=== PATIENT | male | born 1945 | race African-American/Black ===

== ENCOUNTER → 2016-09-02 | Outpatient (CLI) | payer MEDICARE ==
[~2016-09-02] MED LIST: ALEVE 220MG220 MG; ALEVE220 MG PO; FLEXERIL10 MG PO; GLUCOPHAGE500 MG/TAB PO; HCTZ; HCTZ 25MG TAB25 MG PO; KADIAN10 MG PO; LEVAQUIN 5500 MG/TA1 PO; LOPRESSOR 550 MG/TAB PO; LORTAB 5/500 501 TAB PO; LORTAB 7.5/5001 TAB PO; MEDROL 4MG DOSPA4 MG PO; NAPROSYN PO; NEURONTIN300 MG/CAP PO; NORCO 325 MG-101 TAB PO; NORCO 325 MG-51 TAB PO; NORVASC 10MG10 MG PO; PERCOCET 325 MG1 TA2 PO; PLAVIX 75MG TAB75 MG PO; PREVACID30 MG PO; PRILOSEC 20MG20 MG PO; PROTONIX 40MG T40 MG PO; SINGULAIR 110 MG/TAB PO; ULTRAM 50MG TAB50 MG PO; VALIUM 5MG T5 MG/TAB PO; ZANTAC 150MG T150 MG PO; ZITHROMAX 250M250 MG PO; [UNRECOGNIZED DRUG - REMARK]; muscle relaxer
== END ==
LOC: EDBD 15:01 → COL.RAD 15:01
DX: C16.9 Malignant neoplasm of stomach, unspecified (principal)
CPT/HCPCS: Q9967

== ENCOUNTER 2016-10-02 05:21 | Day surgery (SDC) | payer MEDICARE ==
[2016-10-02] VITALS (7 sets, daily range): BP systolic 134–146; BP diastolic 67–79; PULSE 56–73; TEMP 97.7–97.9
[~2016-10-02] VITALS: Ht 172.7 cm; Wt 83.1 kg
== END 2016-10-02 10:50 | disposition home or self-care (01) ==
LOC: EDBD 05:21 → SDCO 05:21
DX: C16.3 Malignant neoplasm of pyloric antrum (principal); K66.0 Peritoneal adhesions (postprocedural) (postinfection); I10 Essential (primary) hypertension; E11.9 Type 2 diabetes mellitus without complications; K21.9 Gastro-esophageal reflux disease without esophagitis; Z79.84 Long term (current) use of oral hypoglycemic drugs; Z95.828 Presence of other vascular implants and grafts; Z90.49 Acquired absence of other specified parts of digestive tract; Z82.49 Family history of ischemic heart disease and other diseases of the circulatory system; Z83.3 Family history of diabetes mellitus; Z80.49 Family history of malignant neoplasm of other genital organs
CPT/HCPCS: C1788; J0360; J0690; J1100; J1644; J2270; J2405; J2704; J2710; J3010; J7030

== ENCOUNTER 2016-12-23 14:31 | Inpatient (IN) | payer MEDICARE ==
[~2016-12-23] VITALS: Ht 175.3 cm; Wt 82.0 kg
[2017-01-05] VITALS (11 sets, daily range): BP systolic 99–146; BP diastolic 61–98; PULSE 56–69; TEMP 97.1–98.4
[2017-01-05] MEDS ORDERED: SINGULAIR 110 MG/TAB PO (06:35)
[2017-01-06] VITALS: BP 115/68; PULSE 67; TEMP 98.2
[2017-01-06 04:00] VITALS: BP 115/68; PULSE 67; TEMP 98.2
[2017-01-06 09:53] VITALS: BP 153/76; PULSE 85; TEMP 97.9
[2017-01-06 11:18] LABS: MEAN CELL VOLUME 91 fl (80.0-100.0); MEAN CORPUSCULAR HGB CONC 32 g/dl (33.0-37.0); MEAN PLATELET VOLUME 11.6 fl (7.4-10.4); PLATELET COUNT 181 K/mm3 (130-400); RED BLOOD COUNT 3.47 M/mm3 (4.20-5.60); REDCELL DISTRIBUTION WIDTH-CV 19.1 % (11.5-14.5); WHITE BLOOD COUNT 16.7 K/mm3 (4.8-10.8)
[2017-01-06 11:25] LABS: CALCIUM 9.1 mg/dL (8.4-10.2); CREATININE, serum 1.21 mg/dL (0.66-1.25); HEMATOCRIT 31.4 % (42.0-52.0); HEMOGLOBIN 10.1 g/dl (13.5-18.0); MEAN CORPUSCULAR HEMOGLOBIN 29 pg (27.0-31.0); POTASSIUM 4.9 mmol/L (3.4-5.0)
[2017-01-06 11:26] LABS: ADD PATHOLOGY DIFF REVIEW NO
[2017-01-06 12:39] LABS: BAND 4 % (0-10); METAMYELOCYTE 1 % (0-0); NEUTROPHILS 77 % (42.0-75.2); PLATELET ESTIMATE NORMAL (NORMAL); TOTAL CELLS COUNTED 100
[2017-01-06 13:34] VITALS: BP 144/83; PULSE 83; TEMP 98.1
[2017-01-06 17:44] VITALS: BP 150/79; PULSE 89; TEMP 98.2
[2017-01-06 21:19] VITALS: BP 136/59; PULSE 95; TEMP 98.2
[2017-01-07 02:05] VITALS: BP 118/46; PULSE 83; TEMP 98.6
[2017-01-07 06:13] LABS: MEAN CELL VOLUME 89 fl (80.0-100.0); MEAN CORPUSCULAR HGB CONC 33 g/dl (33.0-37.0); MEAN PLATELET VOLUME 10.6 fl (7.4-10.4); PLATELET COUNT 139 K/mm3 (130-400); RED BLOOD COUNT 2.87 M/mm3 (4.20-5.60); REDCELL DISTRIBUTION WIDTH-CV 18.9 % (11.5-14.5); WHITE BLOOD COUNT 11.8 K/mm3 (4.8-10.8)
[2017-01-07 06:14] LABS: HEMATOCRIT 25.6 % (42.0-52.0); HEMOGLOBIN 8.4 g/dl (13.5-18.0); MEAN CORPUSCULAR HEMOGLOBIN 29 pg (27.0-31.0)
[2017-01-07 06:15] LABS: ADD PATHOLOGY DIFF REVIEW NO
[2017-01-07 06:19] VITALS: BP 120/66; PULSE 77; TEMP 98.2
[2017-01-07 06:27] LABS: CALCIUM 8.5 mg/dL (8.4-10.2); CREATININE, serum 0.94 mg/dL (0.66-1.25); POTASSIUM 4.2 mmol/L (3.4-5.0)
[2017-01-07 06:57] LABS: BAND 1 % (0-10); NEUTROPHILS 71 % (42.0-75.2); TOTAL CELLS COUNTED 100
[2017-01-07 06:59] LABS: ANISOCYTOSIS 2+
[2017-01-07 07:00] LABS: TARGET CELLS 1+
[2017-01-07 07:01] LABS: SPHEROCYTE 2+
[2017-01-07 07:03] LABS: PLATELET ESTIMATE DECREASED (NORMAL)
[2017-01-07 17:19] VITALS: BP 121/65; PULSE 74; TEMP 98.4
[2017-01-07 21:23] VITALS: BP 121/60; PULSE 74; TEMP 100
[2017-01-08 04:24] VITALS: BP 120/64; PULSE 75; TEMP 98.5
[2017-01-08 04:44] LABS: HEMATOCRIT 23.5 % (42.0-52.0); HEMOGLOBIN 7.6 g/dl (13.5-18.0)
[2017-01-08 08:52] VITALS: BP 133/67; PULSE 74; TEMP 98.6
[2017-01-08 13:23] VITALS: BP 135/71; PULSE 70; TEMP 98.3
[2017-01-08 17:14] VITALS: BP 137/70; PULSE 76; TEMP 99
[2017-01-08 21:27] VITALS: BP 133/71; PULSE 71; TEMP 99.3
[2017-01-09] VITALS: BP 124/65; PULSE 69; TEMP 97.9
[2017-01-09 04:00] VITALS: BP 124/65; PULSE 64; TEMP 98.3
[2017-01-09 05:20] LABS: HEMATOCRIT 24.9 % (42.0-52.0); HEMOGLOBIN 8.1 g/dl (13.5-18.0)
[2017-01-09 08:00] VITALS: BP 108/52; PULSE 63; TEMP 98.4
[2017-01-09 13:46] VITALS: BP 122/60; PULSE 65; TEMP 97.7
[2017-01-09 17:14] VITALS: BP 123/67; PULSE 70; TEMP 98.5
[2017-01-09 21:29] VITALS: BP 126/64; PULSE 76; TEMP 98.8
[2017-01-10 02:31] VITALS: BP 133/66; PULSE 71; TEMP 98.1
[2017-01-10 06:42] VITALS: BP 124/55; PULSE 67; TEMP 98.4
[2017-01-10 09:22] VITALS: BP 130/60; PULSE 72; TEMP 97.7
[2017-01-10 13:46] VITALS: BP 139/73; PULSE 72; TEMP 98.8
[2017-01-10 18:17] VITALS: BP 142/63; PULSE 73; TEMP 98.4
[2017-01-10 21:24] VITALS: BP 140/67; PULSE 76; TEMP 99.3
[2017-01-11 06:03] VITALS: BP 143/64; PULSE 74; TEMP 98.9
[2017-01-11 10:03] VITALS: BP 132/61; PULSE 68; TEMP 97.8
[2017-01-11] MEDS ORDERED: NORCO 325 MG-101 TAB PO (12:04)
== END 2017-01-11 14:45 | disposition home or self-care (01) | DRG 327 ==
LOC: INPTSU 01-05 05:31 → SURG 01-05 05:31 → EDBD 01-05 07:30 → SURG 01-05 10:47
PROVIDERS: Surgery
PROC: 0DB70ZZ Excision of Stomach, Pylorus, Open Approach (ICD-10-PCS; principal; 2017-01-05 07:30)
PROC: 0D160ZA Bypass Stomach to Jejunum, Open Approach (ICD-10-PCS; 2017-01-05 07:30)
DX: C16.3 Malignant neoplasm of pyloric antrum (principal); K91.3 Postprocedural intestinal obstruction; E11.9 Type 2 diabetes mellitus without complications; I70.201 Unspecified atherosclerosis of native arteries of extremities, right leg; Z79.02 Long term (current) use of antithrombotics/antiplatelets; I10 Essential (primary) hypertension
CPT/HCPCS: A4315; A9284; J0690; J0694; J1100; J1650; J1815; J2250; J2405; J2704; J2765; J2795; J3010; J7030; J7120

== ENCOUNTER 2017-12-27 08:18 | Outpatient (CLI) | payer MEDICARE ==
[~2017-12-27] VITALS: Ht 175.3 cm; Wt 79.8 kg
[2017-12-27] VITALS (7 sets, daily range): BP systolic 117–152; BP diastolic 52–96; PULSE 57–63; TEMP 97.3
[~2017-12-27 08:18] MED LIST changes: +ASPIRIN E.C. 8181 MG PO; +B-121000 MCG PO; +FLOMAX 0.40.4 MG/CAP PO; +MEVACOR 20M20 MG/TAB PO
== END 2017-12-27 12:14 | disposition home or self-care (01) ==
LOC: COL.RAD 08:18
DX: M99.71 Connective tissue and disc stenosis of intervertebral foramina of cervical region (principal); M50.11 Cervical disc disorder with radiculopathy, high cervical region; M48.02 Spinal stenosis, cervical region; G60.9 Hereditary and idiopathic neuropathy, unspecified; Z98.890 Other specified postprocedural states
CPT/HCPCS: Q9967

== ENCOUNTER → 2017-12-31 | Outpatient (CLI) | payer MEDICARE | LOC: COL.RAD 12:44 | DX: M87.852 Other osteonecrosis, left femur (principal); M87.851 Other osteonecrosis, right femur ==

== ENCOUNTER 2018-02-04 07:59 | Day surgery (SDC) | payer MEDICARE ==
[~2018-02-04] VITALS: Ht 172.7 cm; Wt 79.2 kg
[2018-02-04 08:41] VITALS: BP 126/65; PULSE 51; TEMP 97.1
[2018-02-04] MEDS ORDERED: B-12 250 MCG PO (09:02)
[2018-02-04] MEDS ORDERED: LEVITRA20 MG PO (09:09)
[2018-02-04] MEDS ORDERED: PROAIR HFA0.09 MG/AC IH (09:11)
[2018-02-04 10:35] VITALS: BP 112/62; PULSE 52; TEMP 97.6
[2018-02-04 10:50] VITALS: BP 112/78; PULSE 47
[2018-02-04 11:05] VITALS: BP 120/75; PULSE 47
== END 2018-02-04 11:35 ==
LOC: SDCO 07:59
DX: Z12.11 Encounter for screening for malignant neoplasm of colon (principal); D12.0 Benign neoplasm of cecum; D12.2 Benign neoplasm of ascending colon; K57.30 Diverticulosis of large intestine without perforation or abscess without bleeding; K64.1 Second degree hemorrhoids; K64.4 Residual hemorrhoidal skin tags; D13.1 Benign neoplasm of stomach; E75.5 Other lipid storage disorders; K22.2 Esophageal obstruction; K31.89 Other diseases of stomach and duodenum; R13.10 Dysphagia, unspecified; I10 Essential (primary) hypertension; E11.9 Type 2 diabetes mellitus without complications; Z88.8 Allergy status to other drugs, medicaments and biological substances; Z79.84 Long term (current) use of oral hypoglycemic drugs; Z90.49 Acquired absence of other specified parts of digestive tract; Z85.028 Personal history of other malignant neoplasm of stomach
CPT/HCPCS: C1726; J2250; J3010; J7030

== ENCOUNTER → 2018-04-12 | Outpatient (CLI) | payer MEDICARE ==
[~2018-04-12] MED LIST changes: +B-12 250 MCG PO; +LEVITRA20 MG PO; +PROAIR HFA0.09 MG/AC IH
[2018-04-12 10:37] LABS: BILIRUBIN,TOTAL 0.6 mg/dL (0.0-1.0); CALCIUM 9.4 mg/dL (8.4-10.2); CREATININE, serum 1.08 mg/dL (0.66-1.25); POTASSIUM 4.6 mmol/L (3.4-5.0); TOTAL PROTEIN 8.2 gm/dL (6.4-8.2)
== END ==
LOC: EDBD 08:26 → COL.RAD 08:26 → EDBD 08:30
PROVIDERS: Internal Medicine
DX: C16.3 Malignant neoplasm of pyloric antrum (principal); N20.0 Calculus of kidney; N32.89 Other specified disorders of bladder; Z90.49 Acquired absence of other specified parts of digestive tract; Z98.1 Arthrodesis status
CPT/HCPCS: Q9967

== ENCOUNTER 2019-03-24 09:49 | Day surgery (SDC) | payer MEDICARE ==
[~2019-03-24] VITALS: Ht 172.7 cm; Wt 80.5 kg
[~2019-03-24 09:49] MED LIST changes: -B-12 250 MCG PO; -MEVACOR 20M20 MG/TAB PO; +MEVACOR40 MG PO; +VITAMIN B12 681 TAB PO
[2019-03-24 10:56] VITALS: BP 123/75; PULSE 68; TEMP 97.6
[2019-03-24] MEDS ORDERED: PROTONIX 40MG T40 MG PO (11:04)
[2019-03-24] MEDS ORDERED: COZAAR 50MG50 MG/TAB PO (11:05)
[2019-03-24] MEDS ORDERED: COUMADIN 5MG5 MG/TAB PO (11:06)
[2019-03-24] MEDS ORDERED: PROFERRIN ES12 MG PO (11:09)
[2019-03-24] MEDS ORDERED: VITAMIN D31000 I1 PO (11:10)
[2019-03-24 12:15] VITALS: BP 134/78; PULSE 65
--- NOTE | 2019-03-24 12:15 | NUR ---
Pt to GI [facility] 5 via cart from [employer]. Pt awake and alert. Pt ambulates to recliner with stand by assistance. Soda and applesauce given per pt request. Family in room. Pt denies pain or nausea. Will continue to monitor. Call light within reach.
[2019-03-24 12:30] VITALS: BP 137/78; PULSE 60
--- NOTE | 2019-03-24 12:30 | NUR ---
Pt tolerating food and fluids without difficulties. Will continue to monitor.
[2019-03-24 12:45] VITALS: BP 142/77; PULSE 59
--- NOTE | 2019-03-24 12:45 | NUR ---
Pt continues to rest. Denies needs. Call light within reach.
--- NOTE | 2019-03-24 13:00 | NUR ---
IV site discontinued with all parts intact. Discharge instructions reviewed. Pt voices understanding. Pt up to dress. Call light within reach.
[2019-03-24 13:08] VITALS: BP 117/76; PULSE 60
--- NOTE | 2019-03-24 13:10 | NUR ---
Pt escorted to private car via wheel chair. Pt accompanied home by his family.
== END 2019-03-24 13:10 | disposition home or self-care (01) ==
LOC: SDCO 09:49
DX: K21.9 Gastro-esophageal reflux disease without esophagitis (principal); K22.2 Esophageal obstruction; K31.89 Other diseases of stomach and duodenum; E11.9 Type 2 diabetes mellitus without complications; I10 Essential (primary) hypertension; K25.9 Gastric ulcer, unspecified as acute or chronic, without hemorrhage or perforation; Z85.028 Personal history of other malignant neoplasm of stomach; Z90.49 Acquired absence of other specified parts of digestive tract; Z88.8 Allergy status to other drugs, medicaments and biological substances; Z79.84 Long term (current) use of oral hypoglycemic drugs
CPT/HCPCS: C1726; J2704; J7120

== ENCOUNTER 2020-03-04 09:50 | Outpatient (RCR) | payer MEDICARE, OTHER ==
[~2020-03-04 09:50] MED LIST changes: +COUMADIN 5MG5 MG/TAB PO; +COZAAR 50MG50 MG/TAB PO; +PROFERRIN ES12 MG PO; +VITAMIN D31000 I1 PO
== END 2020-05-06 | disposition home or self-care (01) ==
LOC: WSST
DX: R13.12 Dysphagia, oropharyngeal phase (principal)

== ENCOUNTER 2020-05-16 15:52 | Emergency (ER) | payer MEDICARE ==
[~2020-05-16] VITALS: Ht 172.7 cm; Wt 77.3 kg
[2020-05-16 16:19] VITALS: TEMP 98.4
[2020-05-16 17:47] VITALS: BP 116/73; PULSE 72
== END 2020-05-16 17:48 | disposition home or self-care (01) ==
LOC: COL.ER 15:52
DX: U07.1 COVID-19 (principal); J45.909 Unspecified asthma, uncomplicated; Z88.8 Allergy status to other drugs, medicaments and biological substances; Z87.891 Personal history of nicotine dependence; Z79.02 Long term (current) use of antithrombotics/antiplatelets; Z79.84 Long term (current) use of oral hypoglycemic drugs; Z79.01 Long term (current) use of anticoagulants

== ENCOUNTER → 2021-11-19 | Outpatient (CLI) | payer MEDICARE | LOC: COL.LAB 09:34 | DX: Z00.00 Encounter for general adult medical examination without abnormal findings (principal) ==